=== PATIENT | male | born 1945 | race Caucasian/White ===

== ENCOUNTER → 2024-02-22 08:52 | Outpatient (REF) | payer MEDICARE, BC, SELFPAY | LOC: RAD 08:52 | PROVIDERS: ATTENDING PHYSICIAN Internal Medicine Rheumatology; FAMILY PHYSICIAN Family Medicine | DX: M25.449 Effusion, unspecified hand (principal); M25.549 Pain in joints of unspecified hand; M06.4 Inflammatory polyarthropathy | CPT/HCPCS: 76882 ==